=== PATIENT | female | born 1985 | race Caucasian/White ===

== ENCOUNTER 2017-05-07 17:01 | Inpatient (IN) | payer MEDICAID, OTHER ==
[~2017-05-07] VITALS: Ht 154.9 cm; Wt 81.0 kg
[2017-05-07] MEDS ORDERED: LACTATED RINGER'S 1,000 ML IV PRN (18:00)
[2017-05-07] MEDS ORDERED: OXYTOCIN 30 UNITS/LR 500 ML IV SCH ×2 (18:00)
[2017-05-07] MEDS ORDERED: OXYTOCIN 30 UNITS/LR 500 ML IV PRN (18:00)
[2017-05-07] MEDS ORDERED: LIDOCAINE 1% (MPF) 30 ML INJ INJ PRN (18:00)
[2017-05-07] MEDS ORDERED: CARBOPROST 250 MCG INJ IM PRN (18:00)
[2017-05-07] MEDS ORDERED: MISOPROSTOL 200 MCG TAB PR PRN (18:00)
[2017-05-07] MEDS ORDERED: METHYLERGONOVINE 0.2 MG INJ IM PRN (18:00)
[2017-05-07] MEDS ORDERED: BUTORPHANOL 2 MG INJ IV PRN ×2 (18:00)
--- NOTE | 2017-05-07 18:55 | TRIAGE ---
OB Triage Datetime Report Generated by CPN: 05/07/2017 18:54 Datetime: 05/07/2017 18:37 Labor Evaluation Frequency: 5-6 Monitor Mode: External Duration (sec)2399: 40--60 Quality: Mild Pattern: Normal: <= 5 Contractions in 10 Minutes Resting Tone [place]: Relaxed Heart Rate FHR Baseline Rate: 145 Monitor Mode: External US FHR Baseline Changes: No Baseline Change Variability: Moderate 6-25 bpm Accelerations: 15X15 Decelerations: None Category: Category I Datetime: 05/07/2017 18:09 Labor Evaluation Frequency: 5-6 Monitor Mode: External Duration (sec)2399: 40-60 Quality: Mild Pattern: Normal: <= 5 Contractions in 10 Minutes Resting Tone [place]: Relaxed Heart Rate FHR Baseline Rate: 150 Monitor Mode: External US FHR Baseline Changes: No Baseline Change Variability: Moderate 6-25 bpm Accelerations: 15X15 Decelerations: None Category: Category I Datetime: 05/07/2017 17:30 Stage of : OB Triage Datetime: 05/07/2017 17:23 Time of Arrival: 05/07/2017 18:49 EGA: 37.0 Arrived By: Ambulatory Datetime: 05/07/2017 17:08 Stage of : OB Triage Maternal Assessment Level of Consciousness: Fully Conscious DTR's/Clonus: DTRs 2+; No Clonus Headache: Denies Blurred Vision: No Respiratory Effort: Unlabored Breath Sounds, Left: Clear and Equal Breath Sounds, Right: Clear and Equal Nausea/Vomiting: Denies RUQ Epigastric Pain: Denies Facial Edema: None Labor Evaluation Frequency: X1 Monitor Mode: External Duration (sec)2399: 60 Quality: Mild Pattern: Normal: <= 5 Contractions in 10 Minutes Resting Tone [place]: Relaxed Heart Rate FHR Baseline Rate: 145 Monitor Mode: External US FHR Baseline Changes: No Baseline Change Variability: Moderate 6-25 bpm Accelerations: 15X15 Decelerations: None Category: Category I Pain Assessment Pain Scale: 3 Pain Presence: Intermittent Pain Type: Cramping Pain Location: Back Pain Goal: 0 Pain Relief Measures: Comfort Measures Vaginal Exam Dilatation (cms): 3.5 Effacement (%): 60 Station: -2 Exam By: LAURA ROSENBERG Membrane Status: Intact Vaginal Bleeding: None Cervix, Consistency: Soft Cervix, Position: Midposition Presentation 'A': Unable to Assess Lie 'A': Unable to Assess Datetime: 05/07/2017 17:01 Time of Arrival: 05/07/2017 16:40 Arrived By: Ambulatory Arrived From: Office Chief Complaint: R/O LABOR Movement: Present Contractions: Irregular Time Contractions Began: 05/07/2017 08:00 Contractions: 3-5 Rupture of Membranes: Denies Vaginal Bleeding: None Vaginal Discharge: Denies Recent Sexual Intercouse: Denies Abdominal Trauma: Not Applicable Patient Complaints: Contractions Time Provider Notified: 05/07/2017 17:12 Provider Notified: [email or web address]
[2017-05-07] MEDS ORDERED: AMPICILLIN 2 GM/NS (PMX) 100 ML IVPB ONE (20:00)
[2017-05-07 20:03] VITALS: Ht 154.9 cm; Wt 81.0 kg
[2017-05-07] MEDS: LACTATED RINGER'S 1,000 ML IV SCH (20:18)
[2017-05-07 20:37] LABS: BASOPHILS % 0.2 % (0.0-2.0); EOSINOPHILS # 0.1 10^3/ul (0.0-0.5); EOSINOPHILS % 0.5 % (0.0-7.0); HEMOGLOBIN 9.9 g/dl (12.0-16.0); LYMPHOCYTES # 2.7 10^3/ul (0.8-2.9); LYMPHOCYTES % 24.8 % (15.0-51.0); MEAN CORPUSCULAR HEMOGLOBIN 25.6 pg (29.0-33.0); MEAN CORPUSCULAR HGB CONC 31.9 g/dl (32.0-37.0); MEAN CORPUSCULAR VOLUME 80.3 fl (82.0-101.0); MEAN PLATELET VOLUME 11.1 fl (7.4-10.4); MONOCYTE # 0.9 10^3/ul (0.3-0.9); MONOCYTES % 8.4 % (0.0-11.0); NEUTROPHIL # 7.1 10^3/ul (1.6-7.5); NEUTROPHILS % 65.2 % (39.0-77.0); PLATELET COUNT 365 10^3/UL (140-415); RED BLOOD COUNT 3.86 10^6/ul (4.20-5.40); WHITE BLOOD COUNT 10.9 10^3/ul (4.8-10.8)
[2017-05-07 21:03] LABS: ADD UMIC YES; UR ASCORBIC ACID NEGATIVE (NEGATIVE); UR BILIRUBIN (Dip) NEGATIVE (NEGATIVE); UR BLOOD (Dip) 2+ mg/dL (NEGATIVE); UR CLARITY CLEAR (CLEAR); UR COLOR STRAW (YELLOW); UR GLUCOSE (Dip) NEGATIVE (NEGATIVE); UR KETONES (Dip) NEGATIVE (NEGATIVE); UR LEUKOCYTE ESTERASE (Dip) 3+ Leu/ul (NEGATIVE); UR NITRITE (Dip) NEGATIVE (NEGATIVE); UR RBC 2 /HPF (0-5); UR SPECIFIC GRAVITY (Dip) 1.005 (1.003-1.030); UR SQUAMOUS EPITHELIAL CELL FEW /HPF (FEW); UR TOTAL PROTEIN (Dip) NEGATIVE (NEGATIVE); UR UROBILINOGEN (Dip) NEGATIVE (NEGATIVE)
[2017-05-07 21:07] LABS: BARBITURATES Negative (NEGATIVE); BENZODIAZEPINES Negative (NEGATIVE); CANNABINOIDS Negative (NEGATIVE); COCAINE Negative (NEGATIVE); OPIATES Negative (NEGATIVE)
[2017-05-07 21:09] LABS: PARTIAL THROMBOPLASTIN TIME 27.7 Sec (25.0-35.0)
[2017-05-07 21:44] LABS: INR 1.02; PROTIME 13.4 Sec (12.2-14.2)
[2017-05-07 21:49] VITALS: BP 132/74; PULSE 72
[2017-05-08] MEDS: AMPICILLIN 1 GM/NS (PMX) 50 ML IVPB SCH ×4 (00:12→12:40)
[2017-05-08] MEDS: LACTATED RINGER'S 1,000 ML IV SCH ×3 (01:52→17:32)
[2017-05-08] MEDS ORDERED: OXYTOCIN 30 UNITS/LR 500 ML IV SCH (14:00)
--- NOTE | 2017-05-08 17:39 | HP ---
Date/Time of Note Date/Time of Note DATE: 05/08/17 TIME: 17:38 OB - History Hx of Present Free Text/Dictation TERM PREG, IN LABOR Care: Good Care Ultrasounds: Normal mid trimester US Obstetrical Complications: None Medical Complications: None Past Family/Social History * Past Medical, Surgical, Family and Obstetric Histories reviewed from chart. OB Admission Exam Vital Signs Vital Signs Vital Signs Date Time Temp Pulse Resp B/P Pulse Ox O2 Delivery O2 Flow Rate FiO2 05/07/17 21:49 97.5 72 132/74 Room Air Physical Exam HEENT: WNL Heart: Rhythm Normal Lungs: Clear, Equal Abdomen: WNL Extremities: Normal Reflexes: Normal Cervical Dilatation: 6cm Effacement: 75% Station: -1 Membranes: Ruptured Amniotic Fluid: Clear Heart Rate: 130's Accelerations: Accelerations Present Decelerations: No Decelerations Varibility: Marked Contractions on Admission: 6-10 Minutes Apart Intensity: Moderate Last 72 hours Lab Results CBC & BMP 05/07/17 19:50 OB Assessment/Plan Reason for admission: active labor Plan: Expectant Management KAVIN ALEXANDRA MD May 08, 2017 17:39
--- NOTE | 2017-05-08 19:05 | LDN ---
Date/Time of Note Date/Time of Note DATE: 05/08/17 TIME: 19:04 Delivery Summary NSD W/O COMPLICATIONS Placenta Delivered: Spontaneously Meconium: none Episiotomy: No Perineal laceration: 2 Anesthesia type: Local Estimated blood loss: 300 Sponge & Needle done & correct: Yes All needle counts correct: Yes Any foreign bodies felt in the: No Problems: KAVIN ALEXANDRA MD May 08, 2017 19:05
[2017-05-08] MEDS: LACTATED RINGER'S 1,000 ML IV* SCH (20:11)
[2017-05-08] MEDS ORDERED: LANOLIN 7 GM TUBE TOP PRN (20:30)
[2017-05-08] MEDS ORDERED: ZOLPIDEM 5 MG TAB PO PRN (20:30)
[2017-05-08] MEDS ORDERED: MAGNESIUM HYDROXIDE 30ML CUP PO PRN (20:30)
[2017-05-08] MEDS ORDERED: DIPHENHYDRAMINE 25 MG CAP PO PRN (20:30)
[2017-05-08] MEDS ORDERED: ACETAMINOPHEN 325 MG TAB PO PRN (20:30)
[2017-05-08] MEDS ORDERED: BENZOCAINE 20% 56 ML SPRAY TOP PRN (20:30)
[2017-05-08] MEDS ORDERED: OXYTOCIN 30 UNITS/LR 500 ML IV PRN (20:30)
[2017-05-08] MEDS ORDERED: WITCH HAZEL/GLYCERIN PAD PR PRN (20:30)
[2017-05-08] MEDS ORDERED: MISOPROSTOL 200 MCG TAB PR PRN (20:30)
[2017-05-08] MEDS ORDERED: METHYLERGONOVINE 0.2 MG INJ IM PRN (20:30)
[2017-05-08] MEDS ORDERED: HYDROCODONE/APAP (5/325) TAB PO PRN (20:30)
[2017-05-08] MEDS ORDERED: CARBOPROST 250 MCG INJ IM PRN (20:30)
[2017-05-08] MEDS ORDERED: SENNA/DOCUSATE NA (8.6MG/50MG) TAB PO PRN (20:30)
[2017-05-08 21:35] VITALS: BP 117/56; PULSE 87; RESP 18
[2017-05-08] MEDS: OXYTOCIN 30 UNITS/LR 500 ML IV SCH (22:38)
[2017-05-09 01:00] VITALS: BP 121/60; PULSE 91; RESP 18
[2017-05-09] MEDS: IBUPROFEN 800 MG TAB PO SCH ×5 (01:34→23:53)
[2017-05-09] MEDS: OXYTOCIN 30 UNITS/LR 500 ML IV SCH (02:45)
[2017-05-09] MEDS: LACTATED RINGER'S 1,000 ML IV* SCH ×2 (04:11→12:11)
[2017-05-09 04:16] VITALS: BP 115/58; PULSE 77; RESP 18
[2017-05-09 07:45] VITALS: BP 126/62; PULSE 93
[2017-05-09 09:18] LABS: BASOPHILS % 0.2 % (0.0-2.0); EOSINOPHILS % 0.1 % (0.0-7.0); HEMOGLOBIN 8.4 g/dl (12.0-16.0); LYMPHOCYTES # 1.9 10^3/ul (0.8-2.9); LYMPHOCYTES % 14.1 % (15.0-51.0); MEAN CORPUSCULAR HEMOGLOBIN 25.8 pg (29.0-33.0); MEAN CORPUSCULAR HGB CONC 32.3 g/dl (32.0-37.0); MEAN CORPUSCULAR VOLUME 79.8 fl (82.0-101.0); MEAN PLATELET VOLUME 10.9 fl (7.4-10.4); MONOCYTES % 7.7 % (0.0-11.0); NEUTROPHIL # 10.3 10^3/ul (1.6-7.5); NEUTROPHILS % 77.2 % (39.0-77.0); PLATELET COUNT 304 10^3/UL (140-415); RED BLOOD COUNT 3.26 10^6/ul (4.20-5.40); RED CELL DISTRIBUTION WIDTH 14.8 % (11.5-14.5); WHITE BLOOD COUNT 13.3 10^3/ul (4.8-10.8)
[2017-05-09 16:00] VITALS: BP 112/70; PULSE 84; RESP 16
--- NOTE | 2017-05-09 18:26 | PN ---
Date/Time of Note Date/Time of Note DATE: 05/09/17 TIME: 18:24 OB Subjective Subjective Subjective Denies any complaint. Ambulating without any shortness of breath, chest pain or any complaints. Bleeding in the mouth or masses. Breast-feeding. OB Objective Objective Objective Hematology - 72 Hrs Test 05/07/17 19:50 05/09/17 08:53 White Blood Count 10.910^3/ul (4.8-10.8) H 13.310^3/ul (4.8-10.8) #H Red Blood Count 3.8610^6/ul (4.20-5.40) L 3.2610^6/ul (4.20-5.40) L Hemoglobin 9.9g/dl (12.0-16.0) L 8.4g/dl (12.0-16.0) L Hematocrit 31.0% (37.0-47.0) L 26.0% (37.0-47.0) L Mean Corpuscular Volume 80.3fl (82.0-101.0) L 79.8fl (82.0-101.0) L Mean Corpuscular Hemoglobin 25.6pg (29.0-33.0) L 25.8pg (29.0-33.0) L Mean Corpuscular Hemoglobin Concent 31.9g/dl (32.0-37.0) L 32.3g/dl (32.0-37.0) Red Cell Distribution Width 15.0% (11.5-14.5) H 14.8% (11.5-14.5) H Platelet Count 21856^3/UL (140-415) 17242^3/UL (140-415) Mean Platelet Volume 11.1fl (7.4-10.4) H 10.9fl (7.4-10.4) H Neutrophils % 65.2% (39.0-77.0) 77.2% (39.0-77.0) H Lymphocytes % 24.8% (15.0-51.0) 14.1% (15.0-51.0) L Monocytes % 8.4% (0.0-11.0) 7.7% (0.0-11.0) Eosinophils % 0.5% (0.0-7.0) 0.1% (0.0-7.0) Basophils % 0.2% (0.0-2.0) 0.2% (0.0-2.0) Nucleated Red Blood Cells % 0.0/100WBC (0.0-0.0) 0.0/100WBC (0.0-0.0) Neutrophils # 7.110^3/ul (1.6-7.5) 10.310^3/ul (1.6-7.5) H Lymphocytes # 2.710^3/ul (0.8-2.9) 1.910^3/ul (0.8-2.9) Monocytes # 0.910^3/ul (0.3-0.9) 1.010^3/ul (0.3-0.9) H Eosinophils # 0.110^3/ul (0.0-0.5) 0.010^3/ul (0.0-0.5) Basophils # 0.010^3/ul (0.0-0.1) 0.010^3/ul (0.0-0.1) Nucleated Red Blood Cells # 0.010^3/ul (0.0-0.0) 0.010^3/ul (0.0-0.0) General appearance: Alert and oriented 4. Patient does not appear to be in any acute distress. Abdomen: Soft, fundal height below the umbilicus and firm and nontender Extremities: No calf tenderness, no click no edema OB Assessment/Plan Other Assessment: Status post day #1 Doing well Mild anemia. Asymptomatic Desires to go home Stable for discharge Continue iron with vitamin Follow-up with OB office in 6 weeks or sooner as needed any problem PAULO RIVAS MD May 09, 2017 18:26
--- NOTE | 2017-05-09 18:29 | DS ---
Date/Time of Note Date/Time of Note DATE: 05/09/17 TIME: 18:27 Discharge Summary Admission/Discharge Info Admit Date/Time May 07, 2017 at 17:30 Discharge Date/Time 05/09/2017 Patient Condition: Good Consults None Procedures Hx of Present Illness 31-year-old female with at 37 weeks presented in labor and she had uncomplicated . course only had anemia mild that was asymptomatic. She was breast-feeding and ambulating without any symptoms. She was stable vitals were stable. On day #1 after 24 hours post of the patient desired to go home. She was noted to be stable enough to be discharged home with a follow-up within 6 weeks or sooner there will be office with advised to take iron and vitamins after discharge from the hospital. Hospital Course Unremarkable Follow-up Plan 6 weeks with OB office or sooner as needed Primary Care Provider Care Physician No Primary Time spent on discharge: > 30 minutes Pending Labs Laboratory Tests Test 05/09/17 08:53 White Blood Count 13.310^3/ul (4.8-10.8) Red Blood Count 3.2610^6/ul (4.20-5.40) Hemoglobin 8.4g/dl (12.0-16.0) Hematocrit 26.0% (37.0-47.0) Mean Corpuscular Volume 79.8fl (82.0-101.0) Mean Corpuscular Hemoglobin 25.8pg (29.0-33.0) Mean Corpuscular Hemoglobin Concent 32.3g/dl (32.0-37.0) Red Cell Distribution Width 14.8% (11.5-14.5) Platelet Count 04311^3/UL (140-415) Mean Platelet Volume 10.9fl (7.4-10.4) Neutrophils % 77.2% (39.0-77.0) Lymphocytes % 14.1% (15.0-51.0) Monocytes % 7.7% (0.0-11.0) Eosinophils % 0.1% (0.0-7.0) Basophils % 0.2% (0.0-2.0) Nucleated Red Blood Cells % 0.0/100WBC (0.0-0.0) Neutrophils # 10.310^3/ul (1.6-7.5) Lymphocytes # 1.910^3/ul (0.8-2.9) Monocytes # 1.010^3/ul (0.3-0.9) Eosinophils # 0.010^3/ul (0.0-0.5) Basophils # 0.010^3/ul (0.0-0.1) Nucleated Red Blood Cells # 0.010^3/ul (0.0-0.0) PAULO RIVAS MD May 09, 2017 18:28
[2017-05-09 20:00] VITALS: BP 115/56; PULSE 87; RESP 18
[2017-05-10] MEDS: LACTATED RINGER'S 1,000 ML IV* SCH (00:43)
[2017-05-10 04:00] VITALS: BP 100/53; PULSE 77; RESP 18
[2017-05-10] MEDS: IBUPROFEN 800 MG TAB PO SCH (05:36)
[2017-05-10 08:00] VITALS: BP 107/51; PULSE 70; RESP 18
[2017-05-10] MEDS ORDERED: VARICELLA VACCINE LIVE/PF 1,350 UNIT/0.5 ML ML SC* ONE (09:00)
[2017-05-10] MEDS ORDERED: DIPHTH/TET/ACEL PERTUSS (ADULT) 0.5 ML VIAL IM* ONE (09:00)
[2017-05-10] MEDS ORDERED: MEASLES,MUMPS,RUBELLA VACCINE INJ SC* ONE (09:00)
--- NOTE | 2017-05-10 13:39 | DS ---
Date/Time of Note Date/Time of Note DATE: 05/10/17 TIME: 13:38 Obstetrical Discharge Record Final Diagnosis Final Diagnosis: Term delivered Vaginal Delivery Obstetrical Delivery: Spontaneous Condition on Discharge Physical Assessment Voiding: Yes Bowel Movement: Yes Breast: Soft, non-tender Fundus: Firm Calf Tenderness: No Patient Condition: Stable GAIL FALLON MD May 10, 2017 13:39
== END 2017-05-10 15:00 | disposition home or self-care (01) | DRG 775 ==
LOC: OBT 17:01 → L-D 17:03 → OBT 17:30 → L-D 05-08 → PP1 05-08 21:38
PROVIDERS: ADMIT Obstetrics & Gynecology; ATTEND Obstetrics & Gynecology
PROC: 10E0XZZ Delivery of Products of Conception, External Approach (ICD-10-PCS; principal; 2017-05-08)
PROC: 0KQM0ZZ Repair Perineum Muscle, Open Approach (ICD-10-PCS; 2017-05-08)
PROC: 3E033VJ Introduction of Other Hormone into Peripheral Vein, Percutaneous Approach (ICD-10-PCS; 2017-05-08)
DX: O70.1 Second degree perineal laceration during delivery (principal); Z37.0 Single live birth; Z3A.37 37 weeks gestation of pregnancy
CPT/HCPCS: 80307; 81001; 85025; 85610; 85730; 86592; 86900; 86901; 87340; 90715; 90716; G0463; J0290; J0595; J2590; J7120